=== PATIENT | male | born 2000 | race Hispanic/Latino ===

== ENCOUNTER 2020-11-15 15:33 | Emergency (ER) | payer MEDICAID, OTHER ==
[2020-11-15 16:37] VITALS: BP 140/84
--- NOTE | 2020-11-15 17:45 | Emergency Department Report ---
HPI - General Chief Complaint: Laceration/Recheck/Suture PUI?: No Time Seen by Provider: 11/15/20 17:29 - HPI HPI: 20-year-old male with history of psychiatric disorder currently undergoing inpatient treatment at [facility] brought in by EMS after the patient apparently try to pull out sutures from the wound to his face. The patient tried to cut himself with a hot box operator few days ago. The laceration was successfully sutured. However, just prior to arrival, the patient became violent and tried to rip out the sutures causing bleeding. The bleeding was controlled in the ambulance. He has no symptoms or complaints at this time. ED Past Medical Hx - Past Medical History Previous Medical History?: Yes Hx Psychiatric Treatment: Yes (mult Personalities) ED Review of Systems ROS: Stated complaint: PULLED STITCHES OUT Other details as noted in HPI Constitutional: denies: chills, fever Eyes: denies: vision change ENT: denies: throat pain Respiratory: denies: cough, shortness of breath Cardiovascular: denies: chest pain, palpitations Gastrointestinal: denies: abdominal pain, nausea Genitourinary: denies: dysuria, frequency Musculoskeletal: denies: back pain, myalgia Neurological: denies: headache, numbness Physical Exam - Physical Exam Vital Signs: Vital Signs 11/15/20 16:32 Temperature 98.2 F Pulse Rate 98 H Respiratory 18 Rate Blood Pressure 140/84 [Right] O2 Sat by Pulse 98 Oximetry Physical Exam: GENERAL: Well developed. Well nourished. No acute distress HEENT: Normocephalic. Atratumatic. Moist mucous membranes. There is a 1.5 cm laceration to the right aspect of the cheek extending to the angle of the mouth. 9 interrupted sutures are in place and the skin is well approximated. Bleeding is controlled. Examination of the inside of the mouth reveals no lacerations. EYES: Extraocular movements are intact. Pupils are equal round and reactive to light bilaterally NECK: Supple. Trachea is midline. LUNGS: Nonlabored breathing. Equal chest rise bilaterally. Clear to auscultation bilaterally. HEART/CARDIOVASCULAR: Regular rate and rhythm. No murmurs or rubs. ABDOMEN: Abdomen is soft and nondistended. Normal bowel sounds. No significant tenderness, guarding or rebound. SKIN: Skin is warm and dry NEURO: Patient is awake, alert, and oriented. No focal deficits. MUSCULOSKELETAL: Normal ROM throughout. There are no tenderness or deformity. No significant limitation of range of motion. ED Course Vital Signs 11/15/20 16:32 Temperature 98.2 F Pulse Rate 98 H Respiratory 18 Rate Blood Pressure 140/84 [Right] O2 Sat by Pulse 98 Oximetry ED Medical Decision Making - Medical Decision Making 20-year-old male currently undergoing psychiatric treatment at [facility] brought in by ambulance after the patient tried to pull out the sutures from his facial wound. The bleeding was controlled in route. After the area was cleaned thoroughly, I am able to identify a 1.5 cm laceration which is well approximated with [address]. No evidence of dehiscence. No evidence of tension of the laceration to the inside of the mouth. Patient will be discharged back to his facility with instructions to continue monitoring the wound for signs of infection or dehiscence. Critical Care Time: No Critical care attestation.: If time is entered above; I have spent that time in minutes in the direct care of this critically ill patient, excluding procedure time. ED Disposition Clinical Impression: Simple laceration of face Disposition: [id number] PSY HOSP/PSY UNIT Is pt being admited?: No Condition: Stable Instructions: Laceration Care, Adult, Sutured Wound Care Referrals: ALEXY VELASCO MD [Primary Care Provider] - 3-5 Days Time of Disposition: 17:56
== END 2020-11-15 19:38 ==
LOC: ED 15:33
DX: S01.81XA Laceration without foreign body of other part of head, initial encounter (principal); W45.8XXA Other foreign body or object entering through skin, initial encounter; Y93.89 Activity, other specified; Y92.89 Other specified places as the place of occurrence of the external cause; Y99.8 Other external cause status